=== PATIENT | female | born 1975 | race Caucasian/White ===

== ENCOUNTER 2016-11-11 08:17 | Emergency (ER) | payer BC ==
[2016-11-11 08:30] VITALS: PULSE 71; RESP 20; TEMP 97.6
[2016-11-11 08:31] VITALS: BP 136/89
--- NOTE | 2016-11-11 08:50 | ED ---
General Adult HPI - General Chief complaint: Dental/Oral Stated complaint: dental pain from recent root canal Time Seen by Provider: 11/11/16 08:40 Source: patient, RN notes reviewed Mode of arrival: ambulatory Limitations: no limitations - History of Present Illness Initial comments: Patient 40-year-old female who presents emergency room today with a chief complaint of increased dental pain. She does admit that she had a root canal performed yesterday. States she's on antibiotics of amoxicillin. She states she saw her dentist yesterday as well who also given a prescription for azithromycin. Patient states she's been using ibuprofen 800 mg with little relief of the pain. Does admit that she's had some swelling to the left lower jaw. States it has been getting better. She denies any foul taste. Denies any other complaints or symptoms. Patient denies any recent fever, chills, shortness of breath, chest pain, back pain, abdominal pain, nausea or vomiting, numbness or tingling, dysuria or hematuria, constipation or diarrhea, headaches or visual changes, or any other complaints. - Related Data Previous Rx's Medication Instructions Recorded Hydrocodone/Acetaminophen [[place] 1 each PO Q6HR PRN #10 tab 11/11/16 5-325] Allergies Allergy/AdvReac Type Severity Reaction Status Date / Time No Known Allergies Allergy Verified 11/11/16 08:26 Review of Systems ROS Statement: Those systems with pertinent positive or pertinent negative responses have been documented in the HPI. ROS Other: All systems not noted in ROS Statement are negative. Past Medical History Past Medical History: No Reported History History of Any Multi-Drug Resistant Organisms: None Reported Past Surgical History: No Surgical Hx Reported Past Psychological History: No Psychological Hx Reported Smoking Status: Current every day smoker Past Alcohol Use History: Occasional Past Drug Use History: Marijuana General Exam - General Exam Comments Initial Comments: General: The patient is awake and alert, in no distress, and does not appear acutely ill. Eye: Pupils are equal, round and reactive to light, extra-ocular movements are intact. No nystagmus. There is normal conjunctiva bilaterally. No signs of icterus. Ears, nose, mouth and throat: There are moist mucous membranes and no oral lesions. Mild swelling over the left lower jaw line. No sign of abscess. Uvula midline. Patient swallows without any difficulty. Neck: The neck is supple, there is no tenderness or JVD. Cardiovascular: There is a regular rate and rhythm. No murmur, rub or gallop is appreciated. Respiratory: Lungs are clear to auscultation, respirations are non-labored, breath sounds are equal. No wheezes, stridor, rales, or rhonchi. Musculoskeletal: Normal ROM, no tenderness. Strength 5/5. Sensation intact. Pulses equal bilaterally 2+. Neurological: A&O x 3. CN II-XII intact, There are no obvious motor or sensory deficits. Coordination appears grossly intact. Speech is normal. Skin: Skin is warm and dry and no rashes or lesions are noted. Psychiatric: Cooperative, appropriate mood & affect, normal judgment. Limitations: no limitations Course Vital Signs 11/11/16 08:26 Temperature 97.6 F Pulse Rate 71 Respiratory 20 Rate Blood Pressure 136/89 O2 Sat by Pulse 98 Oximetry Medical Decision Making - Medical Decision Making Patient advised to continue to use amoxicillin. She does admit that swelling has improved. At this time we will not change antibiotics. Patient will be given a short prescription of Kyle for her pain and advised to continue with the ibuprofen. Advised follow-up the dentist Sunday morning in 2 days. Advised return for any other concerns or increase or worsening symptoms. Disposition Clinical Impression: Pain, dental Disposition: HOME SELF-CARE Condition: Good Instructions: Toothache (ED) Additional Instructions: Please follow-up with dentist Sunday morning as discussed. Please use antibiotic as previously prescribed. Please use pain medication as discussed. Please return for any other concerns. Prescriptions: Hydrocodone/Acetaminophen [Kyle 5-325] 1 each PO Q6HR PRN #10 tab PRN Reason: Pain Referrals: None,Stated [Primary Care Provider] - 1-2 days Time of Disposition: 08:49
== END 2016-11-11 09:00 | disposition home or self-care (01) ==
LOC: EC 08:17
DX: K08.89 Other specified disorders of teeth and supporting structures (principal); F17.200 Nicotine dependence, unspecified, uncomplicated; Z98.890 Other specified postprocedural states
CPT/HCPCS: 99283

== ENCOUNTER 2016-11-12 13:26 | Emergency (ER) | payer BC ==
[2016-11-12 13:44] VITALS: BP 186/92; PULSE 72; RESP 18; TEMP 99.7
[2016-11-12] MEDS ORDERED: HYDROcodone/APAP 10-325MG 1 EACH TAB PO ONE (13:45)
[2016-11-12] MEDS ORDERED: BUPIVACAINE (PF) 0.5% 30 ML VIAL SQ STA (13:45)
[2016-11-12] MEDS ORDERED: CLINDAMYCIN 150 MG CAP PO STA (13:45)
--- NOTE | 2016-11-12 13:51 | ED ---
ENT HPI - General Chief complaint: Dental/Oral Stated complaint: Dental Pain Time Seen by Provider: 11/12/16 13:32 Source: patient, RN notes reviewed, old records reviewed Mode of arrival: ambulatory Limitations: no limitations - History of Present Illness Initial comments: This is a 40-year-old female presenting to emergency Department chief complaint of right-sided dental pain. Patient reports that she had a root canal done 2 days ago. She states that she was seen in emergency by yesterday was discharged with pain medication. She reports to take PAIN medication. She states that she has noticed increased swelling over her tooth. She reports she took her last amoxicillin last night. She states that she is still concerned there is an infection. She states that they did a root canal but she had an infection prior to this. She denies any fever or chills. She reports she's not been able to sleep because of the pain. She states that she would take a pain pill every 4 hours. She denies any trismus, or foul taste in her mouth.Patient denies any recent fever, chills, shortness of breath, chest pain, back pain, abdominal pain, nausea vomiting, numbness or tingling, dysuria or hematuria, constipation or diarrhea, headaches or visual changes, or any other current symptoms - Related Data Previous Rx's Medication Instructions Recorded Hydrocodone/Acetaminophen [[place] 1 each PO Q6HR PRN #10 tab 11/11/16 5-325] Clindamycin [Cleocin] 450 mg PO TID 7 Days 11/12/16 traMADol HCl [Ultram] 50 mg PO Q4H PRN #10 tab 11/12/16 Allergies Allergy/AdvReac Type Severity Reaction Status Date / Time No Known Allergies Allergy Verified 11/12/16 13:40 Review of Systems ROS Statement: Those systems with pertinent positive or pertinent negative responses have been documented in the HPI. ROS Other: All systems not noted in ROS Statement are negative. Past Medical History Past Medical History: No Reported History History of Any Multi-Drug Resistant Organisms: None Reported Past Surgical History: No Surgical Hx Reported Past Psychological History: No Psychological Hx Reported Smoking Status: Current every day smoker Past Alcohol Use History: Occasional Past Drug Use History: Marijuana General Exam - General Exam Comments Initial Comments: Physical 40-year-old female. Patient appears in discomfort. Limitations: no limitations General appearance: alert, in no apparent distress Head exam: Present: atraumatic, normocephalic, normal inspection Eye exam: Present: normal appearance, PERRL, EOMI. Absent: scleral icterus, conjunctival injection, periorbital swelling ENT exam: Present: normal exam, mucous membranes moist. Absent: normal oropharynx (Patient has some swelling over the right lower face and jaw. No evidence of abscess within the teeth. Gumline is swollen and erythematous but this could be related to recent root canal procedure.) Neck exam: Present: normal inspection. Absent: tenderness, meningismus, lymphadenopathy Respiratory exam: Present: normal lung sounds bilaterally. Absent: respiratory distress, wheezes, rales, rhonchi, stridor Cardiovascular Exam: Present: regular rate, normal rhythm, normal heart sounds. Absent: systolic murmur, diastolic murmur, rubs, gallop, clicks GI/Abdominal exam: Present: soft, normal bowel sounds. Absent: distended, tenderness, guarding, rebound, rigid Extremities exam: Present: normal inspection, full ROM, normal capillary refill. Absent: tenderness, pedal edema, joint swelling, calf tenderness Back exam: Present: normal inspection Neurological exam: Present: alert, oriented X3, CN II-XII intact Psychiatric exam: Present: normal affect, normal mood Course Vital Signs 11/12/16 13:36 Temperature 99.7 F H Pulse Rate 72 Respiratory 18 Rate Blood Pressure 186/92 O2 Sat by Pulse 96 Oximetry Medical Decision Making - Medical Decision Making This is a 40-year-old female presenting to emergency Department chief complaint of right-sided dental pain. Patient reports that she had a root canal done 2 days ago. She states that she was seen in emergency by yesterday was discharged with pain medication. She reports to take PAIN medication. She states that she has noticed increased swelling over her tooth. She reports she took her last amoxicillin last night. She states that she is still concerned there is an infection. She states that they did a root canal but she had an infection prior to this. Patient denies emergency department with temp 99.7 slightly febrile. She does have significant swelling over the right side of her face. Patient will be started on clindamycin, and given 1 pain medication here. She also will receive a nerve block. Discussed that the nerve block will wear off. Discussed that she has a follow-up with her dentist tomorrow morning. Patient agrees to treatment plan will comply. Return parameters were discussed. Disposition Clinical Impression: Pain, dental Disposition: HOME SELF-CARE Condition: Good Instructions: Dental Abscess (ED), Toothache (ED) Additional Instructions: Patient advised to call your dentist tomorrow. Return to the emergency department if any alarming signs or symptoms occur. Take your medications as directed. Prescriptions: Clindamycin [Cleocin] 450 mg PO TID 7 Days traMADol HCl [Ultram] 50 mg PO Q4H PRN #10 tab PRN Reason: Pain Referrals: None,Stated [Primary Care Provider] - 1-2 days Gracia Alves MD [STAFF PHYSICIAN] - 1-2 days Time of Disposition: 13:49
== END 2016-11-12 14:15 | disposition home or self-care (01) ==
LOC: EC 13:26
DX: K08.89 Other specified disorders of teeth and supporting structures (principal); F17.200 Nicotine dependence, unspecified, uncomplicated; Z98.890 Other specified postprocedural states
CPT/HCPCS: 64400; 99283